=== PATIENT | female | born 1960 | race African-American/Black ===

== ENCOUNTER 2023-09-24 18:31 | Emergency (ER) | payer OTHER, MEDICAID ==
[~2023-09-24] VITALS: Ht 172.7 cm; Wt 95.0 kg
[2023-09-24 18:37] VITALS: BP 180/75; PULSE 95; RESP 16; TEMP 98; O2SAT 100
[2023-09-24 19:50] LABS: BASOPHILS % 0.4 % (0.0-2.0); EOSINOPHILS % 2.4 % (0.0-5.0); HEMATOCRIT. 35.7 % (36.0-48.0); HEMOGLOBIN. 12.3 g/dL (12.0-16.0); LYMPHOCYTES % 31.1 % (20.0-50.0); MEAN CORPUSCULAR HEMOGLOBIN 28.8 pg (28.0-32.0); MEAN CORPUSCULAR HGB CONC 34.6 g/dL (31.0-37.0); MEAN CORPUSCULAR VOLUME 83.3 fL (81.0-99.0); MEAN PLATELET VOLUME 7.9 fl (7.4-10.4); MONOCYTES % 7.3 % (2.0-8.0); NEUTROPHILS % 58.8 % (40.0-76.0); PLATELET 372 x1000/uL (130-400); RED BLOOD CELL COUNT 4.28 mill/uL (4.2-5.4); RED CELL DISTRIBUTION WIDTH 14.8 % (11.6-14.6); WHITE BLOOD COUNT 9.6 x1000/uL (4.5-11.0)
[2023-09-24 20:00] LABS: PROTHROMBIN TIME 11.3 sec (9.6-11.0)
[2023-09-24 20:05] LABS: ALANINE AMINOTRANSFERASE 14 IU/L (10-49); ALBUMIN 4.5 g/dL (3.2-4.8); ASPARTATE AMINOTRANSFERASE 17 IU/L (<34); BILIRUBIN TOTAL < 0.2 mg/dL (0.1-1.0); CALCIUM 9.2 mg/dL (8.7-10.4); CARBON DIOXIDE 28 mEq/L (21-32); CHLORIDE 103 mEq/L (98-107); GLUCOSE 129 mg/dL (70-105); POTASSIUM 4.5 mEq/L (3.5-5.1); PROTEIN TOTAL 8.5 g/dL (6.0-8.3); SODIUM 138 mEq/L (136-145); TROPONIN I HIGH SENSITIVITY 8 ng/L (3.0-34); UREA NITROGEN BLOOD 23 mg/dL (9-23)
[2023-09-24 21:01] LABS: T4 FREE 1.04 ng/dL (0.89-1.76); THYROID STIMULATING HORMONE 7.58 uIU/mL (0.55-4.78)
[2023-09-24 21:44] LABS: TROPONIN I HIGH SENSITIVITY 10 ng/L (3.0-34)
[2023-09-24] MEDS ORDERED: METOCLOPRAMIDE HCL 10MG/2ML VIAL IV ONE (23:45)
[2023-09-24] MEDS ORDERED: SODIUM CHLORIDE 0.9% 1,000 ML IV ONE (23:45)
[2023-09-24] MEDS ORDERED: ACETAMINOPHEN 325MG TABLET PO ONE (23:45)
== END 2023-09-24 21:07 | disposition left against medical advice (07) ==
LOC: ER 18:31
DX: R51.9 Headache, unspecified (principal); I10 Essential (primary) hypertension; E03.9 Hypothyroidism, unspecified
CPT/HCPCS: 99285; 70450; 71045; 80053; 84439; 84443; 85025; 85610; 84484; 93005; 36415; J2765; J7030